=== PATIENT | male | born 1980 | race Caucasian/White ===

== ENCOUNTER 2018-09-25 11:56 | Inpatient (IN) ==
[2018-09-25] MEDS ORDERED: THIAMINE INJ 100 MG, FOLIC ACID INJ 1 MG, MULTIVITAMIN INJ 10 ML in SODIUM CHLORIDE 0.9... IV ONE (12:23)
[2018-09-25] MEDS ORDERED: DICYCLOMINE 10 MG CAPSULE PO PRN (12:23)
[2018-09-25] MEDS ORDERED: METHOCARBAMOL 750 MG TABLET PO PRN (12:23)
[2018-09-25] MEDS ORDERED: HydrOXYzine PAMOATE 25 MG CAPSULE PO PRN (12:23)
[2018-09-25] MEDS ORDERED: LORazepam 2 MG/1 ML VIAL IV PRN (12:23)
[2018-09-25] MEDS ORDERED: NICOTINE 21 MG/24 HR PATCH TRANSDERM PRN (12:24)
[2018-09-25] MEDS ORDERED: ONDANSETRON 4 MG/2 ML VIAL IV PRN (12:24)
[2018-09-25] MEDS ORDERED: ALUMINUM/MAGNES/SIMETH MAX STR 30 ML UDCUP PO PRN (12:24)
[2018-09-25] MEDS ORDERED: BISACODYL 10 MG SUPP RECTAL PRN (12:24)
[2018-09-25] MEDS ORDERED: ACETAMINOPHEN 500 MG TABLET PO PRN (12:24)
[2018-09-25 13:42] LABS: Basophils % 0.3 % (0.0-0.8); Eosinophils # 0.1 10*3/uL (0.0-0.87); Eosinophils % 1.5 % (0.00-10.9); Hematocrit 42.3 VOL% (42.0-52.0); Hemoglobin 14.3 GM/DL (14.0-18.0); Immature Granulocytes % 0.4 %; Immature Granulocytes Absolute 0.04 #; Lymphocytes # 2.1 10*3/uL (1.4-4.0); Lymphocytes % 22.1 % (21.2-54.2); Mean Corpuscular HGB Conc 33.8 GM/DL (32-36); Mean Corpuscular Volume 87.6 FL (87-102); Mean Platelet Volume 9.7 FL (9.6-12.0); Monocytes % 8.4 % (1.7-12.7); Neutrophils % 67.3 % (38.7-73.9); Platelet Count 253 T/CUMM (130-400); Red Blood Count 4.83 MC/CUMM (3.8-5.5); Red Cell Distribution Width 13.3 % (9.3-17.3); White Blood Count 9.6 T/CUMM (4-12)
[2018-09-25 14:07] LABS: INR 0.9; PT Patient Result 10.2 SECS
[2018-09-25 14:10] LABS: Alanine Aminotransferase 55 U/L (16-61); Albumin 4.3 G/DL (3.4-5.0); Alkaline Phosphatase 131 U/L (45-117); Amylase 37 U/L (25-115); Aspartate Amino Transferase 32 U/L (0-37); Blood Urea Nitrogen 15 MG/DL (7-18); Calcium 9.1 MG/DL (8.5-10.1); Glucose 112 MG/DL (74-106); Osmolality,Calculated 280.4 MOS/KG (273-304); Total Protein 8.1 G/DL (6.4-8.3)
[2018-09-25] MEDS: FOLIC ACID 1 MG TABLET PO SCH (16:14)
[2018-09-25] MEDS: chlordiazePOXIDE 25 MG CAPSULE PO SCH ×2 (16:14→21:32)
[2018-09-25 18:28] LABS: Apearance,Urine CLOUDY (Clear); Bilirubin,Urine Negative (Negative); Blood, Urine Negative (Negative); Glucose,Urine (UA) Negative (Negative); Ketones,Urine 5 mg/dL (Negative); Mucus,Urine Many /LPF (Occasional); Nitrite,Urine Negative (Negative); Protein,Urine Negative; Urine Urobilinogen < 2.0 EU/DL (0.2-1.0)
[2018-09-25 18:31] LABS: Urine Color Yellow (Yellow)
[2018-09-25 21:28] LABS: Barbiturates Screen,Urine Negative (Negative); Benzodiazepines Screen,Urine Positive (Negative); Cannabinoid Screen,Urine Negative (Negative); Opiate Screen,Urine Negative (Negative); Phencyclidine Screen,Urine Negative (Negative)
[2018-09-26] MEDS: chlordiazePOXIDE 25 MG CAPSULE PO SCH ×4 (03:46→22:50)
[2018-09-26] MEDS: THIAMINE 100 MG TABLET PO SCH (10:10)
[2018-09-26] MEDS: FOLIC ACID 1 MG TABLET PO SCH (10:10)
[2018-09-27 04:39] LABS: Basophils % 0.3 % (0.0-0.8); Eosinophils # 0.1 10*3/uL (0.0-0.87); Eosinophils % 1.5 % (0.00-10.9); Hemoglobin 12.7 GM/DL (14.0-18.0); Immature Granulocytes % 0.4 %; Immature Granulocytes Absolute 0.03 #; Lymphocytes # 2.5 10*3/uL (1.4-4.0); Lymphocytes % 34.4 % (21.2-54.2); Mean Corpuscular HGB Conc 34.3 GM/DL (32-36); Mean Corpuscular Volume 88.7 FL (87-102); Mean Platelet Volume 10.1 FL (9.6-12.0); Monocytes % 8.9 % (1.7-12.7); Neutrophils % 54.5 % (38.7-73.9); Platelet Count 188 T/CUMM (130-400); Red Blood Count 4.17 MC/CUMM (3.8-5.5); Red Cell Distribution Width 13.3 % (9.3-17.3); White Blood Count 7.3 T/CUMM (4-12)
[2018-09-27 05:04] LABS: Calcium 8.7 MG/DL (8.5-10.1); Osmolality,Calculated 273.7 MOS/KG (273-304)
[2018-09-27] MEDS: chlordiazePOXIDE 25 MG CAPSULE PO SCH ×3 (06:40→22:07)
[2018-09-27] MEDS: FOLIC ACID 1 MG TABLET PO SCH (09:49)
[2018-09-27] MEDS: THIAMINE 100 MG TABLET PO SCH (09:49)
[2018-09-27] MEDS: amLODIPine 5 MG TABLET PO SCH (11:23)
[2018-09-27] MEDS: PANTOPRAZOLE 40 MG TABLET PO SCH (11:23)
[2018-09-28] MEDS: chlordiazePOXIDE 25 MG CAPSULE PO SCH (06:12)
[2018-09-28] MEDS: FOLIC ACID 1 MG TABLET PO SCH (09:53)
[2018-09-28] MEDS: THIAMINE 100 MG TABLET PO SCH (09:53)
[2018-09-28] MEDS: amLODIPine 5 MG TABLET PO SCH (09:54)
[2018-09-28] MEDS: PANTOPRAZOLE 40 MG TABLET PO SCH (09:54)
[2018-09-28 10:34] VITALS: BP 132/95
== END 2018-09-28 11:50 | disposition home or self-care (01) | DRG 897 ==
LOC: SUATTDRO 12:20 → N.4E 12:20
PROVIDERS: ADMIT Internal Medicine; ATTEND Internal Medicine